=== PATIENT | male | born 1960 | race Caucasian/White ===

== ENCOUNTER 2018-04-27 20:09 | Emergency (ER) | payer MEDICARE, MEDICAID ==
[~2018-04-27] VITALS: Ht 167.6 cm; Wt 80.0 kg
[~2018-04-27 20:09] MED LIST: BUSP10TA11 PO; CALC3.7S4; CLON-527 PO; DESM0.1T PO; DIPH-423 PO; DIVA-81 PO; EUCA50OI5 TP; FOLI-43 PO; LEVO150T62 PO; MESA400C3 PO; MULT-1085 PO; OLAN2.5T3 PO; OMEP-84 PO; OXYB15TA3 PO; PHEN125O9 PO; RISP2TAB97 PO; TEG100T PO; [UNRECOGNIZED DRUG - CODE] PO
[2018-04-28 00:25] LABS: BASOPHILS % (AUTO) 0.1 % (0-1); EOSINOPHILS % (AUTO) 0.1 % (0-6); HEMATOCRIT 36.9 % (42.0-52.0); LYMPHOCYTES # (AUTO) 0.8 X10'3 (1.1-4.8); LYMPHOCYTES % (AUTO) 11.4 % (21-51); MEAN CORPUSCULAR HEMOGLOBIN 29.3 PG (27.0-31.0); MEAN CORPUSCULAR HGB CONC 32.6 g/dL (33.0-36.5); MEAN CORPUSCULAR VOLUME 90.1 FL (78-98); MEAN PLATELET VOLUME 8.8 FL (7.4-10.4); MONOCYTES # (AUTO) 0.7 X10'3 (0-0.9); NEUTROPHILS # (AUTO) 5.2 X10'3 (1.8-7.7); NEUTROPHILS % (AUTO) 77.4 % (42-75); PLATELET COUNT 89 X10'3 (140-440); RED BLOOD COUNT 4.09 X10'6 (4.70-6.10); RED CELL DISTRIBUTION WIDTH 14.1 % (11.5-14.5); WHITE BLOOD COUNT 6.7 X10'3 (4.5-11.0)
[2018-04-28 00:32] LABS: CLARITY,URINE CLEAR (Clear); COLOR,URINE YELLOW (Yellow); GLUCOSE, URINE NEGATIVE (Neg); KETONES,URINE NEGATIVE (Neg); LEUKOCYTE ESTERASE ,URINE NEGATIVE (Neg); NITRITES, URINE NEGATIVE (Neg); OCCULT BLOOD,URINE NEGATIVE (Neg); PH,URINE 6.5 (4.8-8.0); PROTEIN,URINE TRACE mg/dl (Neg); UROBILINOGEN,URINE 0.2 E.U/dL (0.2-1.0)
[2018-04-28 00:33] LABS: UA COLLECTION TYPE STRAIGHT CATH
[2018-04-28 00:38] LABS: RBC,URINE 0-2 /HPF (0-2)
[2018-04-28 00:38] LABS: ALANINE AMINOTRANSFERASE 59 U/L (12-78); ALBUMIN 3.3 G/DL (3.4-5.0); ALBUMIN/GLOBULIN RATIO 0.8 (1.1-1.5); ALKALINE PHOSPHATASE 96 IU/L (46-116); ANION GAP 4 (8-16); ASPARTATE AMINO TRANSFERASE 72 U/L (10-37); BILIRUBIN,TOTAL 0.2 MG/DL (0.1-1.0); BLOOD UREA NITROGEN 13 MG/DL (7-18); BUN/CREATININE RATIO 23.6 (5.4-32.0); CALCIUM 9.6 MG/DL (8.5-10.1); CHLORIDE 98 MMOL/L (99-107); CREATININE 0.55 MG/DL (0.60-1.10); GLUCOSE 109 MG/DL (70-104); POTASSIUM 4.1 MMOL/L (3.5-5.1); SODIUM 135 MMOL/L (135-145); TOTAL PROTEIN 7.5 G/DL (6.4-8.2); eGFR > 90 ML/MIN
[2018-04-28 00:39] LABS: BACTERIA,URINE 2+ /HPF (Neg); HYALINE CASTS 0-3 /LPF (NEGATIVE); MUCUS STRANDS FEW /LPF (Neg); SQUAMOUS EPITHELIAL CELL,UR FEW /LPF (FEW)
[2018-04-28 00:41] LABS: URINE AMPHETAMINE SCREEN NEGATIVE (Neg); URINE BARBITUATE SCREEN NEGATIVE (Neg); URINE BENZODIAZEPINES SCREEN POSITIVE (Neg); URINE CANNABINOID SCREEN NEGATIVE (Neg); URINE COCAINE SCREEN NEGATIVE (Neg); URINE METHADONE SCREEN NEGATIVE (Neg); URINE OPIATE SCREEN NEGATIVE (Neg); URINE PHENCYCLIDINE SCREEN NEGATIVE (Neg)
[2018-04-28 00:41] LABS: PROTHROMBIN TIME 10.4 SECONDS (9.0-12.0)
[2018-04-28] MEDS ORDERED: azithromycin 250mg tablet PO ONE (01:30)
[2018-04-28] MEDS ORDERED: AZIT-63 PO (01:39)
[2018-04-28 02:11] VITALS: BP 126/60
[2018-05-02] MEDS ORDERED: CLOT15CR5 TOP (13:08)
[2018-05-02] MEDS ORDERED: CLON-515 PO (13:08)
[2018-05-02] MEDS ORDERED: HYDR12.5 PO (13:08)
[2018-05-02] MEDS ORDERED: FLUT16SP2 BOTHNARES (13:08)
[2018-05-02] MEDS ORDERED: ACET650T11 PO (13:08)
[2018-05-02] MEDS ORDERED: SULF500T46 PO (13:08)
[2018-05-02] MEDS ORDERED: SELE120S3 TP (13:08)
[2018-05-02] MEDS ORDERED: OLAN2.5T3 PO (13:08)
[2018-05-02] MEDS ORDERED: CLON0.5T23 PO (13:08)
[2018-05-02] MEDS ORDERED: LORA-269 PO (13:08)
== END 2018-04-28 02:17 | disposition home or self-care (01) ==
LOC: ER 20:10
DX: S05.91XA Unspecified injury of right eye and orbit, initial encounter (principal); J18.1 Lobar pneumonia, unspecified organism; R91.1 Solitary pulmonary nodule; R79.1 Abnormal coagulation profile; Z88.0 Allergy status to penicillin; Z79.899 Other long term (current) drug therapy; W18.39XA Other fall on same level, initial encounter; Y93.89 Activity, other specified; Y92.89 Other specified places as the place of occurrence of the external cause; Y99.8 Other external cause status
CPT/HCPCS: 36415; 70450; 71045; 80053; 80305; 81001; 83735; 84484; 85025; 85610; 99284; P9612

== ENCOUNTER 2018-05-02 08:32 | Inpatient (IN) | payer MEDICARE, MEDICAID | END 2018-05-11 13:43 | disposition home health service (06) | LOC: CICU 2S 05-04 01:05 → SUR 3N 05-07 17:40 → ER 08:32 → PCU 3S 05-03 17:27 → ED HOLD 11:23 | PROC: 5A1945Z Respiratory Ventilation, 24-96 Consecutive Hours (ICD-10-PCS; principal; ~2018-05-02) | DX: A41.9 Sepsis, unspecified organism (principal); J96.00 Acute respiratory failure, unspecified whether with hypoxia or hypercapnia; J18.9 Pneumonia, unspecified organism; I95.9 Hypotension, unspecified ==

== ENCOUNTER 2020-12-30 09:24 | Emergency (ER) | payer MEDICARE, MEDICAID ==
[~2020-12-30] VITALS: Ht 180.3 cm; Wt 77.3 kg
[~2020-12-30 09:24] MED LIST changes: +ACET325T55 PO; -BUSP10TA11 PO; +BUSP30TA3 PO; -CALC3.7S4; +CARB200T8 PO; +CLON0.5T23 PO; +CLOT15CR35 TOP; -DESM0.1T PO; -DIPH-423 PO; -EUCA50OI5 TP; +FLUT16SP2 BOTHNARES; +HYDR12.5 PO; +LORA-269 PO; -MESA400C3 PO; -MULT-1085 PO; -OXYB15TA3 PO; -PHEN125O9 PO; +SELE120S3 TP; +SERT-433 PO; +SULF500T46 PO; -TEG100T PO
[2020-12-30 09:51] VITALS: BP 178/116
[2020-12-30 10:20] LABS: BASOPHILS % (AUTO) 0.2 % (0-1); EOSINOPHILS % (AUTO) 0.9 % (0-6); HEMATOCRIT 35.4 % (42.0-52.0); HEMOGLOBIN 11.9 g/dl (14.0-17.9); LYMPHOCYTES # (AUTO) 0.8 X10'3 (1.1-4.8); LYMPHOCYTES % (AUTO) 24.7 % (21-51); MEAN CORPUSCULAR HEMOGLOBIN 30.4 PG (27.0-31.0); MEAN CORPUSCULAR HGB CONC 33.6 g/dL (33.0-36.5); MEAN CORPUSCULAR VOLUME 90.4 FL (78-98); MEAN PLATELET VOLUME 8.8 FL (7.4-10.4); MONOCYTES # (AUTO) 0.4 X10'3 (0-0.9); MONOCYTES % (AUTO) 14.3 % (2-12); NEUTROPHILS # (AUTO) 1.9 X10'3 (1.8-7.7); NEUTROPHILS % (AUTO) 59.9 % (42-75); PLATELET COUNT 154 X10'3 (140-440); RED BLOOD COUNT 3.92 X10'6 (4.70-6.10); RED CELL DISTRIBUTION WIDTH 14.4 % (11.5-14.5); WHITE BLOOD COUNT 3.1 X10'3 (4.5-11.0)
[2020-12-30 10:31] LABS: ALANINE AMINOTRANSFERASE 36 U/L (12-78); ALBUMIN 3.4 G/DL (3.4-5.0); ALBUMIN/GLOBULIN RATIO 0.8 (1.1-1.5); ALKALINE PHOSPHATASE 74 IU/L (46-116); ANION GAP 6 (8-16); ASPARTATE AMINO TRANSFERASE 31 U/L (10-37); BILIRUBIN,TOTAL 0.2 MG/DL (0.1-1.0); BLOOD UREA NITROGEN 13 MG/DL (7-18); BUN/CREATININE RATIO 18.8 (5.4-32.0); CALCIUM 8.9 MG/DL (8.5-10.1); CHLORIDE 94 MMOL/L (99-107); CREATININE 0.69 MG/DL (0.60-1.10); GLUCOSE 73 MG/DL (70-104); POTASSIUM 4.1 MMOL/L (3.5-5.1); SODIUM 132 MMOL/L (135-145); TOTAL CARBON DIOXIDE 32.5 MMOL/L (24-32); TOTAL PROTEIN 7.7 G/DL (6.4-8.2); eGFR > 90 ML/MIN
[2020-12-30] MEDS ORDERED: AZIT-103 PO (11:08)
[2020-12-30] MEDS ORDERED: DOXY100C76 PO (11:08)
== END 2020-12-30 11:38 | disposition home or self-care (01) ==
LOC: ER 09:25
DX: J69.0 Pneumonitis due to inhalation of food and vomit (principal); R62.50 Unspecified lack of expected normal physiological development in childhood; Z86.69 Personal history of other diseases of the nervous system and sense organs; Z88.0 Allergy status to penicillin; Z79.2 Long term (current) use of antibiotics; Z79.899 Other long term (current) drug therapy
CPT/HCPCS: 36415; 71045; 80053; 85025; 99284